=== PATIENT | female | born 1930 | race Caucasian/White ===

== ENCOUNTER 2017-08-23 09:22 | Emergency (ER) | payer MEDICARE, OTHER ==
--- NOTE | 2017-08-23 09:47 | ED Physician Documentation ---
General Adult - HISTORIAN Historian: patient - HPI Stated Complaint: sob Chief Complaint: General Adult Onset: days ago Timing: still present Severity: moderate Further Comments: yes (Pt is an 87 yo female with COPD, CHF, hx afib and bronchitis, who comes to the ER for SOB and wheezing that has been worsening over the past 10 days. Pt denies chest pain, n/v, diaphoresis. Pt was rx'd some steroid inhalers in the past, but these caused her to have mouth sores and thrush so that she avoids using them. Pt had been given Breo samples, which she says worked very well, but is too expensive to buy and has not been covered by insurance. Pt also c/o gassy stomach.) - ROS CONST: no problems EYES/ENT: none CVS/RESP: shortness of breath, other (wheezing) GI/: other ("gassy stomach," bloating) MS/SKIN/LYMPH: none - PAST HX Past History: asthma, COPD, CHF, other (hx afib, bronchitis, GERD, Hypothyroidism, anxiety.) Surgeries/Procedures: cholecystectomy, hysterectomy, other (appendectomy, hernia repair, ortho surg, tonsillectomy, bladder repair.) Allergies/Adverse Reactions: Allergies Allergy/AdvReac Type Severity Reaction Status Date / Time iodine [Iodine] Allergy Severe Face Verified 08/23/17 09:41 Swelling methylprednisolone Allergy Severe Shortness Verified 08/23/17 09:41 of Breath montelukast sodium Allergy Severe Shortness Verified 08/23/17 09:41 [From Singulair] of Breath fluticasone propionate Allergy Intermediate Blister Verified 08/23/17 09:41 [From Advair Diskus] Penicillins Allergy Intermediate Face Verified 08/23/17 09:41 Swelling procaine HCl [From Novocain] Allergy Intermediate Face Verified 08/23/17 09:41 Swelling salmeterol xinafoate Allergy Intermediate Blister Verified 08/23/17 09:41 [From Advair Diskus] beclomethasone dipropionate Allergy Unknown Verified 08/23/17 09:41 [From Qvar] codeine [Codeine] Allergy Unknown Verified 08/23/17 09:41 Sulfa (Sulfonamide Allergy Unknown Verified 08/23/17 09:41 Antibiotics) [Sulfa(Sulfonamide Antibiotics)] Home Medications: Ambulatory Orders Medication Instructions Recorded Alprazolam [Xanax] 0.5 mg PO BID 08/23/17 Biotin/Keratin [Biotin Plus 1 tab PO DAILY 08/23/17 Keratin Tablet] Budesonide/Formoterol Fumarate 2 puff IH BID 08/23/17 [Symbicort 160-4.5 Mcg Inhaler] Cartia 120 mg PO DAILY 08/23/17 Flecainide Acetate [Tambocor] 50 mg PO BID 08/23/17 Levothyroxine Sodium [Unithroid] 50 mcg PO DAILY 08/23/17 Multivitamin [Tab-A-Olvin] 1 each PO DAILY 08/23/17 Omeprazole [Prilosec] 20 mg PO DAILY PRN 08/23/17 Oxybutynin Chloride [Ditropan Xl] 5 mg PO BID 08/23/17 Trimethoprim [Primsol] 100 mg PO HS 08/23/17 - SOCIAL HX Smoking History: quit greater than 1 year - FAMILY HX Family History: No - VITAL SIGNS Vital Signs: Vital Signs Temp Pulse Resp BP Pulse Ox 137/61 01/15/12 04:31 - REVIEWED ASSESSMENTS Nursing Assessment Reviewed: Yes Vitals Reviewed: Yes Progress - Progress Progress: Duoneb HFN x 1 in ER Pulmicort HRN x 1 in ER improved Rx AirDuo RespiClick (113 mcg/14 mcg/spray). One inhalation every 12 hrs. Use for shortest effective duration. Rx Simethicone 80 mg. Take one up to 4 times daily for gas/bloating. Chew before swallowing. Use after meals and at bedtime. Continue home medications. - EKG/XRAY/CT EKG: NSR (HR=62; normal axis; normal VT interval; non-specific intraventricular conduction block.) XRAY: chest (neg) General Adult Physical Exam - PHYSICAL EXAM GENERAL APPEARANCE: mild distress EENT: pharynx normal NECK: normal inspection, supple RESPIRATORY: no resp distress, chest non-tender, wheezes (b/l) CVS: reg rate & rhythm, heart sounds normal ABDOMEN: soft, no organomegaly, normal bowel sounds BACK: normal inspection, no CVA tenderness SKIN: warm/dry, normal color EXTREMITIES: non-tender, normal range of motion, no evidence of injury, no edema NEURO: oriented X3, motor nml, sensation nml Discharge Clincal Impression: COPD/asthma Referrals: Venita Pedersen MD [Primary Care Provider] - Condition: Stable Disposition: 01 HOME, SELF-CARE Decision to Admit: NO Decision Time: 13:02
[2017-08-23] MEDS ORDERED: IPRATROPIUM/ALBUTEROL SULFATE 3 ML AMPUL.NEB NEB ONE (09:54)
[2017-08-23 10:20] LABS: eGFR (Non-African) 38
[2017-08-23 10:25] LABS: BASOPHILS % 0.9 (0.0-1.5); EOSINOPHILS % 2.3 % (0.0-6.8); MEAN CORPUSCULAR HEMOGLOBIN 30.9 pg (28.0-34.0); MEAN CORPUSCULAR VOLUME 97.1 fl (80.0-100.0); MONOCYTES % 5.5 % (0.0-11.0); NEUTROPHILS # 4.4 # k/uL (1.4-7.7)
--- NOTE | 2017-08-23 10:35 | Diagnostic Imaging Report ---
[facility] [address] [facility].[address] [id number] Report Submission Date: Aug 23, 2017 10:23:23 AM CDT Patient Study Name: MECCA ACEVEDO Date: Aug 23, 2017 10:10:05 AM CDT Modality Type: DX Gender: F Description: CHEST : 34 Institution: [facility] Physician: TIANNA ARAUZ Examination: Portable chest History: Evaluate lungs. PT STATES SOB FOR X1 DAY (Hx) Comparison exam: None provided. Findings: Single view of the chest demonstrates a normal cardiac and mediastinal silhouette. Mildly tortuous aorta. Lung crump without focal infiltrate. No blunting of the costophrenic margins. Articular degenerative changes. Impression: No acute appearing pulmonary process. Electronically signed on Aug 23, 2017 10:23:23 AM CDT by: Laci JO
[2017-08-23] MEDS ORDERED: BUDESONIDE 0.5MG/2ML AMPUL.NEB NEB ONE (10:46)
[2017-08-23] MEDS ORDERED: BUDESONIDE 0.5MG/2ML AMPUL.NEB NEB SCH (11:00)
[2017-08-23 11:54] VITALS: BP 122/58
== END 2017-08-23 11:51 | disposition home or self-care (01) ==
LOC: ED 09:22
DX: J44.9 Chronic obstructive pulmonary disease, unspecified (principal)
CPT/HCPCS: 71045; 80053; 82550; 82553; 83880; 84484; 85025; 93005; J7626; 94640; 99283; S1016

== ENCOUNTER 2019-01-14 01:24 | Emergency (ER) | payer MEDICARE, OTHER ==
[2019-01-14] MEDS: IPRATROPIUM/ALBUTEROL SULFATE 3 ML AMPUL.NEB NEB ONE (01:40)
--- NOTE | 2019-01-14 01:40 | ED Physician Documentation ---
Dyspnea - HISTORIAN Historian: patient - HPI Stated Complaint: resp distress Chief Complaint: Cough/ Upper Respiratory Onset: other Initiating Event: upper respiratory illness Severity: severe Exacerbated By: exertion, coughing Associated Symptoms: other (non productive cough) Further Comments: yes ([facility] arrives with pt states she was asking to go to [facility] and she was brought to our facility due to what he felt was unstable. He states she was given IV steroids and two breathing treatments in the Ambulance. Her orders are for DNR and with questioning her she does not wish to have CPR or breathing for her. HE states he attempted BiPap in the ambulance and she did not tolerate this. She was discharged from [facility] this am 01.13.2019 after treatment for pnuemonia. She was not given her antibiotic due to her mental status this evening per his report. After this report was obtained from the facility they report she had a drop in her oxygen level and they did call their Dr for transfer orders at this time it was requested she go to [facility].) - ROS CONST: recent illness - PAST HX Lung Disease: COPD Cardiac Disease: A-Fib Immunizations: UTD Allergies/Adverse Reactions: Allergies Allergy/AdvReac Type Severity Reaction Status Date / Time iodine [Iodine] Allergy Severe Face Verified 08/23/17 09:41 Swelling methylprednisolone Allergy Severe Shortness Verified 08/23/17 09:41 of Breath montelukast sodium Allergy Severe Shortness Verified 08/23/17 09:41 [From Singulair] of Breath fluticasone propionate Allergy Intermediate Blister Verified 08/23/17 09:41 [From Advair Diskus] Penicillins Allergy Intermediate Face Verified 08/23/17 09:41 Swelling procaine HCl [From Novocain] Allergy Intermediate Face Verified 08/23/17 09:41 Swelling salmeterol xinafoate Allergy Intermediate Blister Verified 08/23/17 09:41 [From Advair Diskus] beclomethasone dipropionate Allergy Unknown Verified 08/23/17 09:41 [From Qvar] codeine [Codeine] Allergy Unknown Verified 08/23/17 09:41 Sulfa (Sulfonamide Allergy Unknown Verified 08/23/17 09:41 Antibiotics) [Sulfa(Sulfonamide Antibiotics)] Iodine Allergy Severe Face Uncoded 01/08/12 13:59 Swelling methylprednisolone Allergy Severe Shortness Uncoded 01/08/12 14:14 of Breath montelukast sodium Allergy Severe Shortness Uncoded 01/08/12 14:01 of Breath fluticasone propionate Allergy Intermediate Blister Uncoded 01/08/12 14:03 Penicillins Allergy Intermediate Face Uncoded 01/08/12 13:58 Swelling Procaine HCl Allergy Intermediate Face Uncoded 01/08/12 14:00 Swelling salmeterol xinafoate Allergy Intermediate Blister Uncoded 01/08/12 14:03 Beclomethasone Dipropionate Allergy Unknown Uncoded 01/08/12 13:52 Codeine Allergy Unknown Uncoded 01/08/12 13:50 Sulfa(Sulfonamide Allergy Unknown Uncoded 01/08/12 13:59 Antibiotics) Home Medications: Ambulatory Orders Medication Instructions Recorded ALPRAZolam [Xanax] 0.5 mg PO BID 08/23/17 Biotin/Keratin [Biotin Plus 1 tab PO DAILY 08/23/17 Keratin Tablet] Budesonide/Formoterol Fumarate 2 puff IH BID 08/23/17 [Symbicort 160-4.5 Mcg Inhaler] Cartia 120 mg PO DAILY 08/23/17 Flecainide Acetate [Tambocor] 50 mg PO BID 08/23/17 Levothyroxine Sodium [Unithroid] 50 mcg PO DAILY 08/23/17 Multivitamin [Tab-A-Olvin] 1 each PO DAILY 08/23/17 Omeprazole [Prilosec] 20 mg PO DAILY PRN 08/23/17 Oxybutynin Chloride [Ditropan Xl] 5 mg PO BID 08/23/17 Trimethoprim [Primsol] 100 mg PO HS 08/23/17 - SOCIAL HX Smoking History: non-smoker Alcohol Use: none Drug Use: none - FAMILY HX Family History: none - VITAL SIGNS Vital Signs: Vital Signs Temp Pulse Resp BP Pulse Ox 122/58 08/23/17 11:51 - REVIEWED ASSESSMENTS Nursing Assessment Reviewed: Yes Vitals Reviewed: Yes Progress - Progress Progress: 0142: Post first neb she had a mild improvement in her resp status. She is alert and reports she is not wanting CPR or breathing for her. DG 0145: Attempt to call family with no success. DG 0150: Mild improvement post neb. She states she is feeling less pressure to breathe but still feels she cannot get a deep breath DG 0155: Discussed with pt transfer - she originally wanted transfer to [facility] DG 0200: Discussed case with Melonie Brooks [facility] - Discussed case with Dr Briceno in ER he is accepting DG Dyspnea Physical Exam - EXAM General Appearance: alert, severe distress, anxious EENT: eye inspection normal, no signs of dehydration Neck: nml inspection Respiratory: respiratory distress, accessory muscle use, wheezes, rhonchi, resp. fatigue, other CVS: no murmur, irregularly irreg. rhythm Abdomen: non-tender Skin: color nml, no rash Extremities: non-tender Neuro/Psych: oriented x3 Discharge Clincal Impression: Respiratory distress Pneumonia Qualifiers: Pneumonia type: due to other aerobic Gram-negative bacteria Laterality: left Lung location: upper lobe of lung Qualified Code(s): J15.6 - Pneumonia due to other Gram-negative bacteria Referrals: Dylan Tamez MD [Primary Care Provider] - 2 Days Condition: Critical Disposition: 02 XFER S[facility]-TRM HOSP Decision to Admit: NO Date of Decison to Admit: 01/14/19 Decision Time: 02:21
[2019-01-14] MEDS: BUDESONIDE 0.5MG/2ML AMPUL.NEB NEB ONE (01:49)
[2019-01-14] MEDS: BUDESONIDE 0.5MG/2ML AMPUL.NEB NEB SCH (02:00)
[2019-01-14 02:56] VITALS: BP 98/48
--- NOTE | 2019-01-14 09:49 | Diagnostic Imaging Report ---
PATSY SANCHEZ [facility] [address] [facility].[address] [address] Report Submission Date: Jan 14, 2019 1:52:42 AM CDT Patient Study Name: MECCA ACEVEDO Date: Jan 14, 2019 1:29:46 AM CDT Modality Type: DX Gender: F Description: CHEST 1VIEW : 34 Institution: [facility] Physician: PATSY SANCHEZ Portable chest History: Shortness of breath Findings: Mild asymmetric left upper lobe infiltrate has developed since 08/23/2017. The right lung is clear. Heart size is normal. There is no pleural effusion. Electronically signed on Jan 14, 2019 1:52:42 AM CDT by: Hakeem JO
== END 2019-01-14 02:55 | disposition short-term general hospital (02) ==
LOC: ED 01:24
DX: J15.6 Pneumonia due to other Gram-negative bacteria (principal)
CPT/HCPCS: 71045; 80053; 83605; 83880; 84484; 85025; 94060; 99282; 99284; J7626; 94640; S1016